=== PATIENT | male | born 1960 | race Caucasian/White ===

== ENCOUNTER 2019-09-26 15:10 | Outpatient (CLI) | payer BC, SELFPAY ==
--- NOTE | ~2019-09-26 | CT_ITS ---
EXAMINATION: CT abdomen pelvis w con DATE: 09/26/2019 15:37 INDICATION: Abdominal pain, chills. TECHNIQUE: Computed tomography (CT) of the abdomen and pelvis was performed with 100 cc Omnipaque 350 intravenous contrast. Automated exposure control and iterative reconstruction technique were employe d. Exam dose: 395.44 mGy-cm total exam DLP. COMPARISON: 02/01/2011 CT abdomen pelvis noncontrast examination FINDINGS: Normal heart size. No pericardial or pleural effusion. The lung bases are clear of infiltra te or consolidation. Very small sliding hiatal hernia. No hepatic space-occupying mass lesion. The gallbladder appears unremarkable. No bile duct dilatation . No pancreatic mass lesion or calcification or ductal dilatation. Approximately 12 mm duodenal diver ticulum. Normal splenic size. Normal morphology of the adrenal glands. There are 2 small left renal cortical cysts. There is a small nonobstructing left renal calculus. Probable very small right renal cortical cyst. Normal caliber of the abdominal aorta, with atherosclerotic calcification. No intraperitoneal or retr operitoneal or pelvic mass lesion or adenopathy or ascites. There is a calcified appendicolith. Appendix is dilated up to 12 mm diameter, with prominent periappe ndiceal stranding. The findings are consistent with acute appendicitis. Mild diverticulosis of the sigmoid colon; no CT evidence of diverticulitis. No bowel obstruction or i ntraperitoneal free air is evident. There is prominent prostate enlargement as well as some prostate calcifications. Small fat-containing inguinal hernias. There is severe degenerative disc disease at L5-S1. No suspicious osteolytic or osteoblastic lesions are noted. IMPRESSION: Acute appendicitis, without abscess Bilateral small renal cysts Small nonobstructing left renal calculus Very small sliding hiatal hernia Mild diverticulosis of the sigmoid colon; no CT evidence of diverticulitis Reviewed, dictated and finalized at [facility]. Reviewed, dictated and finalized at location [facility].
[2019-09-26 15:32] LABS: Estimated Glomerular Filt Rate 52
[2019-09-26 16:41] LABS: Basophils Percent Auto 0.2 % (0.2-1.2); Eosinophils Absolute Auto 0.1 K/mm3 (0-0.3); Eosinophils Percent Auto 0.8 % (0-4.4); Hematocrit 42.1 % (42.0-52.0); Hemoglobin 13.9 g/dL (14.0-18.0); Immature Granulocyte Absolute 0.04 K/mm3 (0.00-0.031); Immature Granulocyte Percent A 0.4 % (0-0.5); Lymphocytes Percent Auto 7.9 % (18.3-44.2); Mean Corpuscular Volume 90.9 fl (80-100); Mean Platelet Volume 10.7 fl (7.4-10.4); Monocytes Absolute Auto 0.7 K/mm3 (0.1-0.6); Neutrophils Absolute Auto 9.7 K/mm3 (1.3-6.7); Neutrophils Percent Auto 84.7 % (45.5-73.1); Platelet Count Result 190 k/mm3 (150-375); Red Blood Count 4.63 M/mm3 (4.6-6.20); White Blood Count 11.4 K/mm3 (4.5-10.0)
[2019-09-26 16:53] LABS: Alanine Aminotransferase 39 U/L (4-50); Albumin Level 4.5 g/dL (3.5-5.1); Alkaline Phosphatase 57 U/L (38-126); Aspartate Amino Transferase 37 U/L (17-59); Bilirubin,Total 1.2 mg/dL (0.2-1.3); Blood Urea Nitrogen 16 mg/dL (9-20); Calcium 9.4 mg/dL (8.4-10.2); Carbon Dioxide 29 mmol/L (22-30); Chloride 102 mmol/L (98-107); Cholesterol 188 mg/dL (0-200); Estimated Glomerular Filt Rate > 60; Glucose 99 mg/dL (75-110); HDL Direct 49 mg/dL; Potassium 4.6 mmol/L (3.4-5.0); Sodium 138 mmol/L (137-145); Triglycerides 53 mg/dL (<150)
[2019-09-26 17:04] LABS: LDL Cholesterol Direct 112 mg/dL
[2019-09-26 17:23] LABS: Prostate Specific Antigen 1.5 ng/mL (< OR = 4.0)
== END 2019-09-26 15:11 | disposition home or self-care (01) ==
LOC: ANHIMG 15:12
PROVIDERS: PCP Family Medicine; Visit Provider Nurse Practitioner Family
DX: R10.9 Unspecified abdominal pain (principal); R68.83 Chills (without fever); E78.2 Mixed hyperlipidemia; Z13.29 Encounter for screening for other suspected endocrine disorder; Z12.5 Encounter for screening for malignant neoplasm of prostate; K37 Unspecified appendicitis; N20.0 Calculus of kidney; K44.9 Diaphragmatic hernia without obstruction or gangrene; K57.30 Diverticulosis of large intestine without perforation or abscess without bleeding
CPT/HCPCS: 36415; 74177; 80053; 80061; 84153; 84443; 85025; G0103; Q9967

== ENCOUNTER 2019-09-26 17:51 | Observation (INO) | payer BC, SELFPAY ==
[2019-09-26] VITALS (8 sets, daily range): BP systolic 117–150; BP diastolic 71–86; PULSE 77–92; RESP 16–25; TEMP 36.8–38.4; O2SAT 95–100; BMI 24.0
--- NOTE | ~2019-09-26 | XR_ITS ---
EXAMINATION: XR chest 2V DATE: 09/26/2019 18:36 INDICATION: Acute appendicitis. TECHNIQUE: Frontal and lateral views of the chest were obtained. COMPARISON: CT abdomen and pelvis 09/26/2019 FINDINGS: The chest demonstrates clear lungs without pneumonia, pleural effusion, or pneumothorax. Th e heart size is normal. IMPRESSION: 1. No acute cardiopulmonary disease. Reviewed, dictated and finalized at location [facility].
--- NOTE | 2019-09-26 18:27 | ECG_ITS ---
Measurements Intervals [place] Rate: 87 P: 9 WA: 160 QRS: -28 QRSD: 94 T: 0 QT: 344 QTc: 414 Interpretive Statements SINUS RHYTHM VOLTAGE CRITERIA FOR LVH BORDERLINE R WAVE PROGRESSION, ANTERIOR LEADS BORDERLINE T WAVE ABNORMALITY- INFERIOR LEADS BORDERLINE ECG Electronically Signed On 09-27-2019 7:17:51 CDT by Kilo Hernandez D.O.
--- NOTE | 2019-09-26 18:56 | ED.ABDPAIN ---
HPI - Abdominal Pain General Chief Complaint: Abdominal Pain Stated Complaint: appendicitis per ct Time Seen by Provider: 09/26/19 18:19 History of Present Illness HPI narrative: Patient is a 59-year-old male who presents the ER with right lower quadrant abdominal pain. Ongoing for 3 days. Had an outpatient CT scan today and was referred here for further evaluation. No nausea/vomiting/fever/chills/sweats. No diarrhea. Has not had similar symptoms before. Pain is worse with movement. No alleviating factors. Related Data Home Medications Medication Instructions Recorded Confirmed indomethacin 50 mg capsule PO 09/26/19 Allergies Allergy/AdvReac Type Severity Reaction Status Date / Time Penicillins Allergy Unknown Unknown Verified 09/26/19 18:18 Review of Systems Review of Systems: All systems reviewed & are unremarkable except as noted in HPI and below Constitutional: Constitutional: Denies chills, Denies fever(s) and Denies weakness ENT: Denies nasal congestion and Denies sore throat Gastrointestinal: Gastrointestinal: Reports abdominal pain, Denies diarrhea, Denies nausea and Denies vomiting PMFSH Past Medical History Medical History (Updated 09/26/19 @ 20:25 by Jorge Torres MD) BPH with obstruction/lower urinary tract symptoms Mixed hyperlipidemia Surgical History Surgical History (Updated 09/26/19 @ 20:21 by Jorge Torres MD) No pertinent past surgical history Family History Family History Father Hypertension Family history of Parkinson's disease Family history of diabetes mellitus in first degree relative Mother Family history of malignant neoplasm of breast in first degree relative Family history of malignant neoplasm of ovary Other Family history of malignant neoplasm Social History Social History Smoking status: Never smoker Alcohol intake: never Gender identity (if verbalized by the patient): Male Exam Narrative: Exam Narrative: GENERAL: Well-appearing, well-nourished, and in no acute distress. HEAD: Normocephalic, atraumatic. ENT: Mucous membranes moist. CHEST: Clear to auscultation. No respiratory distress. HEART: Regular rate and rhythm. Normal peripheral pulses. ABDOMEN: Soft, TTP in RLQ at [place] with guarding, nondistended. EXTREMITIES: Normal range of motion. No edema. SKIN: Warm, dry, no rash. NEURO: Alert and oriented x3. PSYCH: Normal mood and affect. Course Course Emergency Course: Discussed with Dr. Reed. Will admit primarily. Will give invanz as pt has PCN allergy. Vital Signs Vital signs: Vital Signs Temperature 99.8 F H 09/26/19 17:54 Pulse Rate 88 09/26/19 17:54 Respiratory Rate 16 09/26/19 17:54 Blood Pressure 117/75 09/26/19 17:54 Pulse Oximetry 100 09/26/19 17:54 Temperature 99.8 F H 09/26/19 17:54 Pulse Rate 67 09/26/19 20:14 Respiratory Rate 15 09/26/19 20:14 Blood Pressure 115/89 09/26/19 20:14 Pulse Oximetry 95 09/26/19 20:14 MDM - Abdominal Pain Lab Data Result diagrams: 09/26/19 18:51 09/26/19 18:51 Labs: Lab Results 09/26/19 09/26/19 09/26/19 Range/Units 18:51 18:51 18:51 WBC 11.4 H (4.5-10.0) K/mm3 RBC 4.52 L (4.6-6.20) M/mm3 Hgb 13.8 L (14.0-18.0) g/dL Hct 40.4 L (42.0-52.0) % MCV 89.4 (80-100) fl MCH 30.5 (26-34) pg MCHC 34.2 (32-36) g/dl RDW 13.0 (11.5-14.5) % Plt Count 195 (150-375) k/mm3 MPV 10.4 (7.4-10.4) fl Immature Gran % (Auto) 0.4 (0-0.5) % Neut % (Auto) 87.0 H (45.5-73.1) % Lymph % (Auto) 6.7 L (18.3-44.2) % Branch % (Auto) 5.2 (2.6-8.5) % Eos % (Auto) 0.4 (0-4.4) % Baso % (Auto) 0.3 (0.2-1.2) % Lymph # (Auto) 0.76 L (0.9-3.2) K/mm3 Branch # (Auto) 0.6 (0.1-0.6) K/mm3 Eos # (Auto) 0.1 (0-0.3) K/mm3 Baso # (Auto) 0.0
[2019-09-26 18:57] LABS: Basophils Percent Auto 0.3 % (0.2-1.2); Eosinophils Absolute Auto 0.1 K/mm3 (0-0.3); Eosinophils Percent Auto 0.4 % (0-4.4); Hematocrit 40.4 % (42.0-52.0); Hemoglobin 13.8 g/dL (14.0-18.0); Immature Granulocyte Absolute 0.04 K/mm3 (0.00-0.031); Immature Granulocyte Percent A 0.4 % (0-0.5); Lymphocytes Absolute Auto 0.76 K/mm3 (0.9-3.2); Lymphocytes Percent Auto 6.7 % (18.3-44.2); Mean Corpuscular HGB Conc 34.2 g/dl (32-36); Mean Corpuscular Hemoglobin 30.5 pg (26-34); Mean Corpuscular Volume 89.4 fl (80-100); Mean Platelet Volume 10.4 fl (7.4-10.4); Monocytes Absolute Auto 0.6 K/mm3 (0.1-0.6); Monocytes Percent Auto 5.2 % (2.6-8.5); Neutrophils Absolute Auto 9.9 K/mm3 (1.3-6.7); Platelet Count Result 195 k/mm3 (150-375); Red Blood Count 4.52 M/mm3 (4.6-6.20); White Blood Count 11.4 K/mm3 (4.5-10.0)
[2019-09-26] MEDS: ERTAPENEM 1 GM/NS 50 ML 1 GM/50 ML BAG IVPB (19:00)
[2019-09-26 19:06] LABS: INR 1.3; Prothrombin Time 15.5 Seconds (11.1-14.7)
[2019-09-26 19:07] LABS: Partial Thromboplastin Time 28.9 SECONDS (22.3-36.8)
[2019-09-26 19:10] LABS: Blood Urea Nitrogen 15 mg/dL (9-20); Calcium 9.3 mg/dL (8.4-10.2); Carbon Dioxide 28 mmol/L (22-30); Chloride 103 mmol/L (98-107); Estimated CRCL calculation 64 ml/min; Estimated Glomerular Filt Rate > 60; Glucose 101 mg/dL (75-110); Potassium 4.1 mmol/L (3.4-5.0); Sodium 140 mmol/L (137-145)
--- NOTE | 2019-09-26 19:25 | PC.NURSE ---
Assumed care of pt at this time. Report from JANAE Jordan
--- NOTE | 2019-09-26 19:57 | WPDANESEPP ---
Anes - Eval Pre Procedure Procedure: Laparoscopic Appendectomy Date/Time: 09/26/19 19:57 Surgeon: Jesse Gudino Preop Diagnosis: Acute appendicitis Pre Op Diagnosis: appendicitis per ct Patient Data Age: 59 Gender: M Height: 1.83 m Weight: 83.4 kg Last Vital Signs Temp 37.7 C H 09/26/19 17:54 Pulse 89 09/26/19 19:25 Resp 25 H 09/26/19 19:25 BP 126/84 09/26/19 19:25 Pulse Ox 95 09/26/19 19:25 Allergies Allergy/AdvReac Type Severity Reaction Status Date / Time Penicillins Allergy Unknown Unknown Verified 09/26/19 18:18 Home Medications Medication Instructions Recorded Confirmed Type tadalafil 5 mg tablet 5 mg PO DAILY #30 tablet 05/08/19 Rx indomethacin 50 mg capsule PO 09/26/19 History Laboratory Tests 09/26/19 09/26/19 09/26/19 18:51 18:51 18:51 WBC 11.4 K/mm3 H K/mm3 (4.5-10.0) RBC 4.52 M/mm3 L M/mm3 (4.6-6.20) Hgb 13.8 g/dL L g/dL (14.0-18.0) Hct 40.4 % L % (42.0-52.0) MCV 89.4 fl fl (80-100) MCH 30.5 pg pg (26-34) MCHC 34.2 g/dl g/dl (32-36) RDW 13.0 % % (11.5-14.5) Plt Count 195 k/mm3 k/mm3 (150-375) MPV 10.4 fl fl (7.4-10.4) Immature Gran % (Auto) 0.4 % % (0-0.5) Neut % (Auto) 87.0 % H % (45.5-73.1) Lymph % (Auto) 6.7 % L % (18.3-44.2) [place] % (Auto) 5.2 % % (2.6-8.5) Eos % (Auto) 0.4 % % (0-4.4) Baso % (Auto) 0.3 % % (0.2-1.2) Lymph # (Auto) 0.76 K/mm3 L K/mm3 (0.9-3.2) [place] # (Auto) 0.6 K/mm3 K/mm3 (0.1-0.6) Eos # (Auto) 0.1 K/mm3 K/mm3 (0-0.3) Baso # (Auto) 0.0 K/mm3 K/mm3 (0.0-0.1) Abs Immat Gran (auto) 0.04 K/mm3 H K/mm3 (0.00-0.031) Absolute Neuts (auto) 9.9 K/mm3 H K/mm3 (1.3-6.7) Absolute Nucleated RBC 0.0 K/mm3 K/mm3 (0.0-0.012) Nucleated RBC % 0.0 % % (0.0-0.2) PT 15.5 Seconds H Seconds (11.1-14.7) INR 1.3 APTT 28.9 SECONDS SECONDS (22.3-36.8) Sodium 140 mmol/L mmol/L (137-145) Potassium 4.1 mmol/L mmol/L (3.4-5.0) Chloride 103 mmol/L mmol/L (98-107) Carbon Dioxide 28 mmol/L mmol/L (22-30) BUN 15 mg/dL mg/dL (9-20) Creatinine 1.20 mg/dL mg/dL (0.7-1.3) Estim Creat Clear Calc 64 ml/min ml/min Estimated GFR > 60 (59 - ) Glucose 101 mg/dL mg/dL (75-110) Calcium 9.3 mg/dL mg/dL (8.4-10.2) Patient hx anesthesia problems: none Family hx anesthesia problems: none [facility] Family History Family History Father Hypertension Family history of Parkinson's disease Family history of diabetes mellitus in first degree relative Mother Family history of malignant neoplasm of breast in first degree relative Family history of malignant neoplasm of ovary Other Family history of malignant neoplasm Social History Social History Smoking status: Never smoker Alcohol intake: never Gender identity (if verbalized by the patient): Male Exam Day of Procedure 09/26/19 19:57 Patient weight: normal Heart: regular rate and rhythm Lungs: clear to auscultation and normal air movement Airway: Mallampati scale class II Neurological: alert and oriented
--- NOTE | 2019-09-26 20:21 | PM.IMHP ---
H&P: HPI History of Present Illness Chief complaint: appendicitis Narrative: Brijesh Lei is a 59 year old male New presented to his PCP on 09/26/2019 after work complaining of right lower quadrant pain for several days outpatient labs and CT scan suggests appendicitis. Therefore the patient came to the ED at [place]. I was called to assist after the CT scan showed acute uncomplicated appendicitis. Further history includes:Pain to RLQ x 2 days. Upon arriving home from work on Sunday of week the pt had soreness to RLQ after lifing heavy equipment. No fevers, but did have chills. Severity the abdominal pain: moderate Associated signs and symptoms: symptoms reported:mild nausea and mild loss of appetite Exacerbating/relieving factors: exacerbating factors:moving too much. Because symptoms and diagnosis after discussing this with ER physician, Dr. Torres, we admitted the patient to my service. He was started on Invanz an antibiotic. IV fluids were started and he was kept NPO. Have discussed with Anesthesia and nursing supervisor riprap placing and he is currently scheduled to consider having a laparoscopic appendectomy morning of Sunday09/27/2019. I have discussed the patient's penicillin allergy with him. This occurred as a child and he had a mild rash. Therefore has come is been my decision to go ahead with 1 dose 1 g of cefotetan preop now about 12 hours after his initial dose of the Invanz given at 6:00 p.m. last night. Review of Systems Constitutional: Constitutional: Reports no additional constitutional complaints and Denies frequent falls Eyes: Eyes: Reports as per HPI ENT: Reports Normal hearing present, Denies dizziness and Reports other (Mucous membranes moist.) Cardiovascular: Cardiovascular: Denies chest pain, Denies palpitations, Denies dyspnea and Denies dyspnea on exertion Respiratory: Respiratory: Denies hemoptysis, Denies dyspnea, Denies dyspnea on exertion and Denies wheezing Gastrointestinal: Gastrointestinal: Reports no additional gastrointestinal complaints, Denies constipation, Denies dysphagia, Reports heartburn (Takes Nexium daily for GERD) and Denies diarrhea Genitourinary: Genitourinary: Denies hematuria, Reports nocturia (Nocturia anywhere between 1 and 5 times per night.) and Denies urinary frequency Comments: Takes Cialis for ED and to try to help the nocturia. Musculoskeletal: Musculoskeletal: Denies deformity and Reports other ( no clubbing,cyanosis, or edema) Integumentary/Breasts: Skin/Breast: Denies new lesions, Denies rash and Denies unusual bruising Neurologic: Reports Normal hearing present, Denies dizziness, Denies frequent falls, Denies memory loss and Denies seizure-like activity Psychiatric: Psychiatric: Denies memory loss and Reports other ( normal mood and mental status) Endocrine: Endocrine: Denies cold intolerance and Denies palpitations Hematologic/Lymphatic: Hematologic/Lymphatic: Denies easy bleeding and Denies easy bruising Allergic/Immunologic: Allergic/Immunologic: Denies wheezing and Reports other ( no lymphadenopathy) [facility] Past Medical History Medical History (Updated 09/26/19 @ 20:29 by Jesse Reed MD) BPH with obstruction/lower urinary tract symptoms Mixed hyperlipidemia (Unknown) Surgical History Surgical History (Updated 09/26/19 @ 20:21 by Jorge Torres MD) No pertinent past surgical history Family History Family History (Updated 09/26/19 @ 21:00 by Leticia Vernon RN) Father Family history of diabetes mellitus in first degree relative Family history of Parkinson's disease Hypertension Mother Family history of malignant neoplasm of ovary Family history of malignant neoplasm of breast in first degree relative Social History Social History Smoking status: Never smoker Alcohol intake: never Substance use: never Gender identity (if verbalized by the patient): Male [employer] car
--- NOTE | 2019-09-26 21:02 | ADMGEN ---
This patient, Brijesh Lei, was admitted to 3 [facility] Surg Room 323-01. Patient/family oriented to hospital policies and general routines including ID bracelet, bed and alarms, visiting hours, pain management, procedures, bathroom and other care routines, personal items, smoking policy, room service/diet, and visiting hours. Valuables list has been completed. Information on how to activate the Rapid Response Team has been discussed. Patient/Family are encouraged to report perceived risks to care and to ask questions if they do not understand what they are told or what they should do.
[2019-09-26] MEDS: LACTATED RINGERS 1,000 ML 100 ML IV CONT (21:17)
[2019-09-27] VITALS (11 sets, daily range): BP systolic 98–133; BP diastolic 55–70; PULSE 60–90; RESP 14–20; TEMP 36.6–37.4; O2SAT 94–100
[2019-09-27] MEDS: MORPHINE SULFATE 4 MG/ML INJ IV PUSH (03:37)
[2019-09-27] MEDS: LACTATED RINGERS 1,000 ML 100 ML IV CONT ×2 (07:51→12:25)
--- NOTE | 2019-09-27 08:48 | P.PNAN_ITS ---
Anes - Eval Final PreProcedure Day of Procedure 09/27/19 08:48 Patient weight: normal Heart: regular rate and rhythm Lungs: clear to auscultation Airway: Mallampati scale class II Neurological: alert and oriented Last oral intake: >/= 8 hours ASA classification: II Emergent: yes Anesthetic plan: proceed Anesthesia type and monitoring: general ETT and standard monitoring Informed Consent: The patient's anesthetic plan and its attendant risks and b enefits were discussed with the patient/family/POA. Questions were solicited and answers provided to the satisfaction of the patient/family/POA.
[2019-09-27] MEDS: BUPIVACAINE/EPINEPHRINE 0.5% 30 ML VIAL 10 ML INFILTRATE (09:42)
--- NOTE | 2019-09-27 09:42 | PC.NURSE ---
To OR per bed, IV saline locked. 09/27/19 @ 0804
[2019-09-27] MEDS: LACTATED RINGERS 1,000 ML 30 ML IV CONT (10:10)
--- NOTE | 2019-09-27 10:14 | PM.PROC ---
Procedure Note - Detailed Date of procedure: 09/27/19 Pre-op diagnosis: appendicitis Post-op diagnosis: other (Acute uncomplicated appendicitis. 2. Incidentally noted a pendulum left inguinal hernia) Procedure performed: Laparoscopic Appendectomy Description of procedure: The patient was seen in his hospital Room this AM. The risks, benefits, complications, treatment options, and expected outcomes were discussed with the patient. The possibilities of reaction to medication, pulmonary aspiration, perforation of viscus, bleeding, recurrent infection, finding a normal appendix, the need for additional procedures, failure to diagnose a condition, and creating a complication requiring transfusion or operation were discussed. There was concurrence with the proposed plan and informed consent was obtained. The site of surgery was properly noted/marked. The patient was taken to Operating Room, and a time out was preformed which identified this as the proper patient, and the procedure verified as laparoscopic appendectomy, possible open. The patient was placed in the supine position and general anesthesia was induced, along with placement of orogastric tube, SCD hose, and a Arreaga catheter. The abdomen was prepped and draped in a sterile fashion. A 5 mm umbilical incision was made and the peritoneal cavity was accessed using the Veress needle technique. Once the abdomen was insufflated to 14 mmHg pressure a 5 mm XL trocar over the 0? 5 mm scope was carefully twisted into the abdomen via the umbilicus. The pneumoperitoneum was then established to steady pressure of 14 mm Hg. A 12 mm laparoscopic port was placed through a transverse suprapubic incision. An additional 5 mm cannula was then placed in the left lower quadrant of the abdomen at a level half way between the umbilicus and pubic symphysis under direct vision. A careful evaluation of the entire abdomen was carried out. A pantaloon hernia was seen in the left inguinal area which would be a direct and indirect inguinal hernia. No hernia was seen on the right. The patient was placed in Trendelenburg and left lateral decubitus position. The small intestines were retracted in the cephalad and left lateral direction away from the pelvis and right lower quadrant. The patient was found to have an enlarged and inflamed appendix that was extending [into the right side of the pelvis. There was no evidence of perforation. However, there was gangrene of the distal tip. The appendix was carefully dissected. Since the base the appendix was seen readily and there was no inflammation there, I was able to dissect a window at the base and slide a DENISE stapler across the base the appendix such that we could amputated at the level of the junction of the appendix and the cecum. A blue load was used for this. Once it was free a 45 mm ethicon endogastroentestinal stapler with a vascular load was placed across the mesoappendix. This was fired and hemostasis was checked along the staple line and appeared to be adequate. I then did touch a couple places along the staple line with Bovie cautery to achieve complete hemostasis. For this patient, this divided the entire mesoappendix. Minimal appendiceal stump was left in place. There was no evidence of bleeding, leakage, or complication after division of the appendix at its junction with the cecum.. The appendix was then placed in an endobag which had been brought through the 12 mm suprapubic port site. The appendix and the bag were then extracted through this larger port site in the suprapubic position. Because of the compression as I pulled this out it did appear that the appendix ruptured in the bag as I was removing it. This did not have appeared to have any free perforation wall was within the abdomen and in fact the necrotic and the appendix states healed prior to placing it in the bag. The suprapubic port site was closed using a #1 Polysorb suture passed with a standard needle holde
--- NOTE | 2019-09-27 15:59 | PM.DS ---
DS: Admitting Diagnosis Admitting Diagnosis Admitting Diagnosis: Unspecified acute appendicitis DS: Discharge Diagnosis Discharge Diagnosis (1) Acute gangrenous appendicitis with localized peritonitis, without perforation: Onset Date: ~09/26/19 Code(s): K35.31 - Acute appendicitis with localized peritonitis and gangrene, without perforation Status: Acute Assessment and Plan: Patient had a laparoscopic appendectomy without signs of perforation. He is improving nicely afterwards. Tolerating a diet. Tolerating the pain well on pain pills. Will plan for discharge at this time. (2) Abdominal pain: Onset Date: ~09/24/19 Qualifiers: Abdominal location: right lower quadrant Qualified Code(s): R10.31 - Right lower quadrant pain Code(s): R10.9 - Unspecified abdominal pain Status: Acute Assessment and Plan: secondary to #1. Above (3) BPH with obstruction/lower urinary tract symptoms: Onset Date: Unknown Code(s): N40.1 - Benign prostatic hyperplasia with lower urinary tract symptoms; N13.8 - Other obstructive and reflux uropathy Status: Acute Assessment and Plan: This varies with nocturia anywhere from 1-5 times per night. I asked him to discuss this with his PCP next visit. He may benefit from starting on Flomax. (4) Gout, unspecified: Onset Date: Unknown Code(s): M10.9 - Gout, unspecified Status: Acute Assessment and Plan: Patient can resume his anti-inflammatory at home in next few days. (5) Mixed hyperlipidemia: Onset Date: Unknown Code(s): E78.2 - Mixed hyperlipidemia Status: Acute Assessment and Plan: Apparently not on any prescription meds for this. Probably should have lipids checked next 3-6 months. Follow-up with PCP. DS: Summary Hospital Course Reason for hospitalization: acute appendicitis with gangrene of the tip without perforation Hospital Course: Patient had uneventful hospital course. He was admitted the night prior to surgery. Antibiotics were started. This probably slowed down the process. At the time of surgery there was no sign of perforation. There was gangrenous changes of the tip of the appendix however. Pathology may show perforation because as I pulled the appendix out in the bag I believe it did leak some. Patient did well postoperatively over the next 6-10 hours. He tolerated a liquid diet and then a soft diet. He was tolerating pain with just pain pills and not having any nausea. He was ready for discharge. Status at Discharge Cognitive/behavioral status at discharge: Back to baseline. Functional status at discharge: independent ambulation Overall status at discharge: patient is not back to baseline ( Will need a week for recovery.) Time Spent with Patient Time attestation: Total time spent providing and/or coordinating discharge services: 36 minutes Time spent: Greater than 30 minutes Specific discharge activities: Patient can walk as much as he wants. Should avoid core exercises for 2 weeks. Should call the office for an appointment to be seen in 2 weeks. Exam Narrative: Exam Narrative: See H&P from earlier today. No basic changes other than at the abdomen there are 3 incision sites which are clean and dry. Patient has slight burning with urination which should improve, but he is voided spontaneously a couple times. DS: Data Data Completed and Pending Pending studies at discharge: Pending at discharge 09/27/19 09:49 Surgical [PTH] Routine Labs on day of discharge: Labs from last 24 hours 09/26/19 09/26/19 09/26/19 18:51 18:51 18:51 WBC 11.4 H RBC 4.52 L Hgb 13.8 L Hct 40.4 L MCV 89.4 MCH 30.5 MCHC 34.2 RDW 13.0 Plt Count 195 MPV 10.4 Immature Gran % (Auto) 0.4 Neut % (Auto) 87.0 H Lymph % (Auto) 6.7 L [place] % (Auto) 5.2 Eos % (Auto) 0.4 Baso % (Auto) 0.3 Lym
--- NOTE | 2019-09-27 18:31 | PC.NURSE ---
Pt has discharge orders. Pt's IV has been removed, pt has had discharge instructions reviewed, and time was provided for questions. Pt exhibits good understanding of discharge instructions. Pt will be assisted by staff to the front door, once his ride arrives.
== END 2019-09-27 19:25 | disposition home or self-care (01) ==
LOC: ANHED 19:08 → ANH3MEDSUR 20:08
PROVIDERS: Admitting Provider Surgery; Emergency Provider Emergency Medicine; PCP Family Medicine; Visit Provider Surgery
PROC: 0DTJ4ZZ Resection of Appendix, Percutaneous Endoscopic Approach (ICD-10-PCS; CPT 44970; principal; 2019-09-27 09:30)
DX: K35.32 Acute appendicitis with perforation, localized peritonitis, and gangrene, without abscess (principal); K38.1 Appendicular concretions; K40.90 Unilateral inguinal hernia, without obstruction or gangrene, not specified as recurrent; N40.1 Benign prostatic hyperplasia with lower urinary tract symptoms; N13.8 Other obstructive and reflux uropathy; M10.9 Gout, unspecified; E78.2 Mixed hyperlipidemia; Z79.899 Other long term (current) drug therapy; Z88.0 Allergy status to penicillin
CPT/HCPCS: 44970; 36415; 71046; 80048; 85025; 85610; 85730; 88304; 93005; 96361; 96365; 96375; 99285; G0378; J0131; J1100; J1335; J2250; J2270; J2370; J2405; J2704; J2710; J3010; J7120

== ENCOUNTER 2023-03-07 03:42 | Day surgery (SDC) | payer BC, SELFPAY ==
[2023-02-20 13:53] VITALS: BMI 25.4
--- NOTE | 2023-03-05 08:37 | SUR.PREOP ---
Patient called regarding upcoming procedure. Reviewed preop instructions, appointment times, and procedure prep.
--- NOTE | 2023-03-06 10:59 | PM.HPGS ---
History of Present Illness History of Present Illness Consent: Risks, benefits, and alternatives have been discussed and questions answered. Patient agrees to proceed with procedure. Chief complaint: Dysphagia Narrative: Brijesh Lei is a 62 year old male referred for investigation of dysphagia. Review of Systems Review of Systems: All systems reviewed & are unremarkable except as noted in HPI and below PMFSH Past Medical History Medical History Anemia BMI 25.0-25.9,adult BMI 26.0-26.9,adult BPH with obstruction/lower urinary tract symptoms (Unknown) COVID-19 Dermatitis Dysphagia Mixed hyperlipidemia (Unknown) Onychomycosis Screen for colon cancer Surgical History Surgical History S/P laparoscopic appendectomy Family History Family History Father Family history of diabetes mellitus in first degree relative Family history of Parkinson's disease Hypertension Mother Family history of malignant neoplasm of ovary Family history of malignant neoplasm of breast in first degree relative Sibling COVID-19 Social History Social History Smoking status: Never smoker Second hand tobacco smoke exposure: No Alcohol intake: never Substance use: never Substance use type: does not use Lack of Transportation: No Lack of Food: Never True Current Housing: I Have Housing Concerned About Future Housing: No Difficulty Paying Gas/Electric Bills: No Difficulty Paying for Meds: No Currently Unemployed: No Education: High School Diploma/GED Living arrangements: with family Occupation/Education: occupation 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 Gender identity (if verbalized by the patient): Male Spiritual care concerns: No Meds Home Medications and Allergies Home Medications Medication Instructions Recorded Confirmed Type esomeprazole magnesium 20 mg 20 mg PO DAILY 09/26/19 03/07/23 History tablet,delayed release (Nexium 24HR) indomethacin 50 mg capsule 50 mg PO Q12H PRN gout #30 caps 08/06/22 03/07/23 Rx terbinafine HCl 250 mg tablet 250 mg PO DAILY #30 tabs 02/15/23 03/07/23 Rx Allergies Allergy/AdvReac Type Severity Reaction Status Date / Time Penicillins Allergy Mild rash Verified 03/07/23 09:50 Exam Const: General: alert Orientation/consciousness: patient oriented x3 Resp: Auscultation: clear to auscultation bilaterally Cardio: Rhythm: regular rhythm GI: GI Palp: Yes Soft to palpation and No Tenderness to palpation present (GI) Neuro: General: patient oriented x3 Assessment and Plan Assessment and plan (1) Dysphagia: Qualifiers: Dysphagia type: oropharyngeal phase Qualified Code(s): R13.12 - Dysphagia, oropharyngeal phase Code(s): R13.10 - Dysphagia, unspecified Status: Acute Assessment and Plan: EGD with possible biopsy or dilatation or cautery.
[2023-03-07 09:51] VITALS: BP 149/89; PULSE 58; RESP 18; TEMP 35.9; O2SAT 99
--- NOTE | 2023-03-07 09:51 | WPDANESEPPF ---
Anes - Initial Pre Proc Eval Procedure: Operation Date: 03/07/23 11:00 Proposed Procedures p Esophagogastroduodenoscopy - Rafa Lovell MD Date/Time: 03/07/23 09:51 Surgeon: Rafa Lovell MD Pre Op Diagnosis: Dysphagia Patient Data Age: 62 Gender: M Height: 1.8 m Weight: 82.5 kg Allergies Allergy/AdvReac Type Severity Reaction Status Date / Time Penicillins Allergy Mild rash Verified 03/07/23 09:50 Home Medications Medication Instructions Recorded Confirmed Type esomeprazole magnesium 20 mg 20 mg PO DAILY 09/26/19 03/07/23 History tablet,delayed release (Nexium 24HR) indomethacin 50 mg capsule 50 mg PO Q12H PRN gout #30 caps 08/06/22 03/07/23 Rx terbinafine HCl 250 mg tablet 250 mg PO DAILY #30 tabs 02/15/23 03/07/23 Rx Patient hx anesthesia problems: none Family hx anesthesia problems: none Results Review: All pre-operative results and documents have been reviewed as part of the pre-operative evaluation. [facility] Past Medical History Medical History Anemia BMI 25.0-25.9,adult BMI 26.0-26.9,adult BPH with obstruction/lower urinary tract symptoms (Unknown) COVID-19 Dermatitis Dysphagia Mixed hyperlipidemia (Unknown) Onychomycosis Screen for colon cancer Surgical History Surgical History S/P laparoscopic appendectomy Family History Family History Father Family history of diabetes mellitus in first degree relative Family history of Parkinson's disease Hypertension Mother Family history of malignant neoplasm of ovary Family history of malignant neoplasm of breast in first degree relative Sibling COVID-19 Social History Social History Smoking status: Never smoker Second hand tobacco smoke exposure: No Alcohol intake: never Substance use: never Substance use type: does not use Lack of Transportation: No Lack of Food: Never True Current Housing: I Have Housing Concerned About Future Housing: No Difficulty Paying Gas/Electric Bills: No Difficulty Paying for Meds: No Currently Unemployed: No Education: High School Diploma/GED Living arrangements: with family Occupation/Education: occupation 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 Informed Consent: The patient's anesthetic plan and its attendant risks and benefits were discussed with the patient/family/POA. Questions were solicited and answers provided to the satisfaction of the patient/family/POA.
[2023-03-07] MEDS: LACTATED RINGERS 1,000 ML 150 ML IV CONT (09:54)
[2023-03-07 10:58] VITALS: BP 98/74; PULSE 58; RESP 16; O2SAT 97
[2023-03-07 11:08] VITALS: BP 106/73; PULSE 52; RESP 16; O2SAT 99
[2023-03-07 11:18] VITALS: BP 126/83; PULSE 53; RESP 18; O2SAT 100
== END 2023-03-07 11:30 | disposition home or self-care (01) ==
PROVIDERS: PCP Family Medicine; Visit Provider Internal Medicine Gastroenterology
PROC: 0DJ08ZZ Inspection of Upper Intestinal Tract, Via Natural or Artificial Opening Endoscopic (ICD-10-PCS; CPT 43235; principal; 2023-03-07 11:00)
DX: R13.12 Dysphagia, oropharyngeal phase (principal); K31.7 Polyp of stomach and duodenum; K22.2 Esophageal obstruction; E78.5 Hyperlipidemia, unspecified
CPT/HCPCS: 43239; 43249; 43251; 88305; C1726; J2704; J7120

== ENCOUNTER 2024-02-22 10:56 | Outpatient (CLI) | payer BC, SELFPAY ==
--- NOTE | ~2024-02-22 | XR_ITS ---
Right elbow Technique: AP, oblique, and lateral views were obtained. Clinical History: Pain Findings: No acute fracture or dislocation is seen. Osseous alignment is anatomic. Joint spaces are p reserved. There is no displacement of the fat pads, and no evidence of joint effusion. There is enthe sopathic change at the medial and lateral epicondyles of humerus, and of the triceps tendon insertion . Impression: Areas of enthesopathic change, as above. No acute abnormality. Reviewed, dictated and finalized at location [facility] Impression: Areas of enthesopathic change, as above. No acute abnormality.
--- NOTE | ~2024-02-22 | XR_ITS ---
Left Knee Technique: AP, lateral, and sunrise views were obtained. Clinical History: Pain Findings: No fracture or dislocation is seen. Osseous alignment is anatomic. Joint spaces are preserv ed without degenerative or erosive change. Soft tissues are unremarkable. No joint effusion is seen. Impression: Unremarkable left knee radiographs. Reviewed, dictated and finalized at location . [facility] Impression: Unremarkable left knee radiographs.
== END 2024-02-22 10:57 | disposition home or self-care (01) ==
LOC: MICIMG 10:58
PROVIDERS: PCP Family Medicine; Visit Provider Nurse Practitioner Adult Health
DX: M25.521 Pain in right elbow (principal); M25.562 Pain in left knee
CPT/HCPCS: 73070; 73562

== ENCOUNTER 2024-09-19 09:32 | Outpatient (CLI) | payer BC, SELFPAY ==
--- NOTE | ~2024-09-19 | MR_ITS ---
MRI of the left knee Clinical history: Pain Technique: Coronal proton density and proton density-weighted images, sagittal proton-density and T2 fat-sat images, and axial proton-density fat-saturated images were acquired. Findings: Anterior cruciate ligament is intact with increased signal, compatible with mucoid degenera tive change. Posterior cruciate ligament intact. Medial collateral ligament and the lateral collatera l ligament complex are intact. Popliteus tendon is intact. There is oblique tear of the posterior horn and body segment of the medial meniscus. No lateral menis ronnie tear seen. There is patchy moderate chondromalacia at the patellar apex and lateral facet. There is patchy moder ate chondromalacia the femoral trochlea. There is mild chondral malacia the medial femoral condyle. S mall tricompartmental osteophytes are present. Extensor mechanism is intact. Minimal joint effusion present. No significant Morton's cyst. Impression: Oblique tear of the posterior horn and body of the medial meniscus. Degenerative change, as above, overall mild to mild-moderate in degree. Reviewed, dictated and finalized at location . Impression: Oblique tear of the posterior horn and body of the medial meniscus. Degenerative change, as above, overall mild to mild-moderate in degree.
== END 2024-09-19 09:33 | disposition home or self-care (01) ==
LOC: GOSHIMG 09:32
PROVIDERS: PCP Family Medicine; Visit Provider Family Medicine
DX: S83.242A Other tear of medial meniscus, current injury, left knee, initial encounter (principal); M17.12 Unilateral primary osteoarthritis, left knee; G89.29 Other chronic pain; X58.XXXA Exposure to other specified factors, initial encounter
CPT/HCPCS: 73721